=== PATIENT | female | born 2000 | race Caucasian/White ===

== ENCOUNTER 2023-04-18 13:00 | Emergency (ER) | payer BC, OTHER ==
[~2023-04-18] VITALS: Wt 84.4 kg
[~2023-04-18 13:00] MED LIST: BACTROBAN CREAM15 GM PO
[2023-04-18 13:40] LABS: BASO % 0.4 % (0.0-1.0); EOS # 0.5 10*3/uL (0.0-0.4); EOS % 5.1 % (1.0-4.0); HEMATOCRIT 37.1 % (37.0-47.0); LYMPH # 2.3 10*3/uL (1.3-4.4); LYMPH % 21.7 % (27.0-41.0); MEAN CELL VOLUME 92.3 fl (81.0-99.0); MEAN CORPUSCULAR HGB 31.8 pg (27.0-31.0); MEAN CORPUSCULAR HGB CONC 34.5 g/dl (33.0-37.0); MONO # 0.5 10*3/uL (0.1-1.0); MONO % 4.6 % (3.0-9.0); NEUT % 67.9 % (47.0-73.0); PLATELET COUNT AUTOMATED 258 10*3/uL (130-400); RED BLOOD COUNT 4.02 10*6/uL (4.10-5.10); RED CELL DISTRI WIDTH 11.4 % (0-14.5); WHITE BLOOD COUNT 10.4 10*3/uL (4.8-10.8)
[2023-04-18 13:51] LABS: ACT PARTIAL THROMBO TIME 27.1 SECONDS (20.0-32.1)
[2023-04-18 14:10] LABS: ALKALINE PHOSPHATASE 111 U/L (46-116); BUN 8 mg/dl (9-23); CHLORIDE 108 mmol/L (98-107); LIPASE 37 U/L (12-53); POTASSIUM 3.8 mmol/L (3.4-5.1); SGPT/ALT 29 U/L (5-49); TOTAL PROTEIN 6.6 gm/dL (6.0-8.0)
[2023-04-18 14:21] LABS: BILIRUBIN Negative (Negative); BLOOD 3+ (Negative); CLARITY Cloudy (Clear); COLOR Red (Yellow); GLUCOSE Negative (Negative); KETONE Negative (Negative); LEUKO ESTERASE 3+ (Negative); NITRITE Negative (Negative); PH 7.5 (4.5-8.0); SPECIFIC GRAVITY <= 1.005 (1.001-1.030); UROBILINOGEN 0.2 E.U./dl (0.0-1.0)
[2023-04-18 14:52] LABS: BACTERIA 2+; WBC 31-40 wbc/hpf (0-5)
[2023-04-18] MEDS ORDERED: CEPHALEXIN500 M1 PO (16:14)
== END 2023-04-18 16:22 | disposition home or self-care (01) ==
LOC: ED 13:00
PROVIDERS: Emergency Medicine
DX: N39.0 Urinary tract infection, site not specified (principal)

== ENCOUNTER 2023-10-30 10:11 | Emergency (ER) | payer BC, OTHER ==
[~2023-10-30] VITALS: Ht 160 cm; Wt 1065.9 kg
[~2023-10-30 10:11] MED LIST changes: +CEPHALEXIN500 M1 PO
[2023-10-30] MEDS ORDERED: REXULTI1 MG PO (10:50)
[2023-10-30 11:05] LABS: BASO % 0.6 % (0.0-1.0); EOS # 0.1 10*3/uL (0.0-0.4); EOS % 1.3 % (1.0-4.0); HEMATOCRIT 41.4 % (37.0-47.0); LYMPH # 1.7 10*3/uL (1.3-4.4); LYMPH % 24.4 % (27.0-41.0); MEAN CORPUSCULAR HGB 28.7 pg (27.0-31.0); MEAN CORPUSCULAR HGB CONC 31.9 g/dl (33.0-37.0); MEAN PLATELET VOLUME 10.3 fl (9.6-12.3); MONO # 0.6 10*3/uL (0.1-1.0); NEUT # 4.5 10*3/uL (2.3-7.9); NEUT % 65.6 % (47.0-73.0); PLATELET COUNT AUTOMATED 285 10*3/uL (130-400); RED CELL DISTRI WIDTH 12.2 % (0-14.5); WHITE BLOOD COUNT 6.9 10*3/uL (4.8-10.8)
[2023-10-30 11:13] LABS: BILIRUBIN Negative (Negative); BLOOD Negative (Negative); CLARITY Clear (Clear); COLOR Yellow (Yellow); GLUCOSE Negative (Negative); KETONE Negative (Negative); LEUKO ESTERASE 2+ (Negative); NITRITE Negative (Negative); SPECIFIC GRAVITY 1.015 (1.001-1.030)
[2023-10-30 11:23] LABS: BACTERIA 1+; EPITHELIAL CELLS 16-20; WBC 21-30 wbc/hpf (0-5)
[2023-10-30 11:27] LABS: ALKALINE PHOSPHATASE 127 U/L (46-116); BUN 5 mg/dl (9-23); CHLORIDE 105 mmol/L (98-107); LIPASE 40 U/L (12-53); POTASSIUM 4.1 mmol/L (3.4-5.1); SGPT/ALT 17 U/L (5-49); TOTAL PROTEIN 7.1 gm/dL (6.0-8.0)
[2023-10-30 11:29] LABS: B-hCG (QUALITATIVE) NEGATIVE (NEGATIVE)
[2023-10-30] MEDS ORDERED: IBUPROFEN 400 MG TAB PO ONE (11:50)
[2023-10-30] MEDS ORDERED: ACETAMINOPHEN 325 MG TAB PO ONE (11:50)
[2023-10-30] MEDS ORDERED: TYLENOL EXTRA500 MG PO (13:46)
[2023-10-30] MEDS ORDERED: IBUPROFEN400 MG PO (13:46)
== END 2023-10-30 14:06 | disposition home or self-care (01) ==
LOC: ED 10:11
PROVIDERS: Emergency Medicine
DX: R10.2 Pelvic and perineal pain (principal); Z79.899 Other long term (current) drug therapy

== ENCOUNTER 2024-01-24 15:22 | Emergency (ER) | payer BC, OTHER ==
[~2024-01-24] VITALS: Ht 160 cm; Wt 98.4 kg
[~2024-01-24 15:22] MED LIST changes: +IBUPROFEN400 MG PO; +REXULTI1 MG PO; +TYLENOL EXTRA500 MG PO
[2024-01-24] MEDS ORDERED: METFORMIN HCL PO (15:47)
[2024-01-24] MEDS ORDERED: TRILEPTAL150 MG PO (15:48)
[2024-01-24] MEDS ORDERED: Lactated Ringer's Solution 1,000 ML IV SCH (16:05)
[2024-01-24 17:04] LABS: BASO # 0.1 10*3/uL (0.0-0.1); BASO % 0.6 % (0.0-1.0); EOS # 0.1 10*3/uL (0.0-0.4); EOS % 0.6 % (1.0-4.0); HEMATOCRIT 42.6 % (37.0-47.0); MEAN CELL VOLUME 84.9 fl (81.0-99.0); MEAN CORPUSCULAR HGB 28.9 pg (27.0-31.0); MEAN PLATELET VOLUME 11.2 fl (9.6-12.3); MONO # 0.5 10*3/uL (0.1-1.0); MONO % 5.7 % (3.0-9.0); NEUT # 6.6 10*3/uL (2.3-7.9); NEUT % 70.9 % (47.0-73.0); PLATELET COUNT AUTOMATED 323 10*3/uL (130-400); RED BLOOD COUNT 5.02 10*6/uL (4.10-5.10); RED CELL DISTRI WIDTH 12.8 % (0-14.5); WHITE BLOOD COUNT 9.3 10*3/uL (4.8-10.8)
[2024-01-24 17:12] LABS: URINE AMPHETAMINES Negative (1000ng/ml); URINE BARBITURATES Negative (200ng/ml); URINE BENZODIAZEPINES Negative (200ng/ml); URINE CANNABINOIDS (THC) Negative (50ng/ml); URINE COCAINE Negative (300ng/ml); URINE METHADONE Negative (300ng/ml); URINE OPIATES Negative (300ng/ml); URINE PHENCYCLIDINE Negative (25ng/ml)
[2024-01-24 17:31] LABS: ALKALINE PHOSPHATASE 101 U/L (46-116); BUN 6 mg/dl (9-23); CHLORIDE 103 mmol/L (98-107); POTASSIUM 3.9 mmol/L (3.4-5.1); SGPT/ALT 13 U/L (5-49); TOTAL PROTEIN 7.7 gm/dL (6.0-8.0)
[2024-01-24 17:37] LABS: BETA-HCG, QUANT < 3.0 mIU/mL (3-10)
[2024-01-24] MEDS ORDERED: IOHEXOL 350 MG/ML 100 ML VIAL IV ONE ×3 (18:00→19:06)
[2024-01-24] MEDS ORDERED: SODIUM CHLORIDE 0.9% 100 ML BAG IV ONE ×2 (18:00→18:45)
[2024-01-24] MEDS ORDERED: SODIUM CHLORIDE 0.9% 100 ML IV ONE (19:07)
== END 2024-01-24 21:12 | disposition home or self-care (01) ==
LOC: ED 15:22
PROVIDERS: Emergency Medicine
DX: R00.2 Palpitations (principal); R00.0 Tachycardia, unspecified; R42 Dizziness and giddiness; Z87.891 Personal history of nicotine dependence

== ENCOUNTER → 2024-01-29 | Outpatient (CLI) | payer BC, OTHER ==
[~2024-01-29] MED LIST changes: +METFORMIN HCL PO; +TRILEPTAL150 MG PO
== END | disposition home or self-care (01) ==
LOC: CARD 02:08
PROVIDERS: ATTEND Family Medicine
DX: R00.0 Tachycardia, unspecified (principal); I49.3 Ventricular premature depolarization; R06.02 Shortness of breath; R55 Syncope and collapse

== ENCOUNTER → 2024-10-13 | Outpatient (CLI) | payer BC, OTHER | END | disposition home or self-care (01) | LOC: US 17:00 | PROVIDERS: ATTEND Nurse Practitioner Women's Health | DX: N94.10 Unspecified dyspareunia (principal); N94.89 Other specified conditions associated with female genital organs and menstrual cycle; R14.0 Abdominal distension (gaseous) ==

== ENCOUNTER 2025-02-09 22:35 | Emergency (ER) | payer BC, OTHER ==
[~2025-02-09] VITALS: Ht 167.6 cm; Wt 72.6 kg
== END 2025-02-09 23:10 | disposition left against medical advice (07) ==
LOC: ED 22:35
DX: G43.909 Migraine, unspecified, not intractable, without status migrainosus (principal); R20.0 Anesthesia of skin; H57.89 Other specified disorders of eye and adnexa; Z53.29 Procedure and treatment not carried out because of patient's decision for other reasons; Z88.6 Allergy status to analgesic agent; Z88.8 Allergy status to other drugs, medicaments and biological substances; Z79.84 Long term (current) use of oral hypoglycemic drugs; Z79.899 Other long term (current) drug therapy

== ENCOUNTER 2025-02-24 11:47 | Emergency (ER) | payer BC, OTHER ==
[~2025-02-24] VITALS: Ht 160 cm; Wt 84.4 kg
[2025-02-24 12:40] LABS: BILIRUBIN Negative (Negative); BLOOD Negative (Negative); CLARITY Clear (Clear); COLOR Yellow (Yellow); KETONE Negative (Negative); LEUKO ESTERASE 3+ (Negative); NITRITE Negative (Negative); PH 8.0 (4.5-8.0); SPECIFIC GRAVITY <= 1.005 (1.001-1.030); UROBILINOGEN 0.2 E.U./dl (0.0-1.0)
[2025-02-24] MEDS ORDERED: SODIUM CHLORIDE 0.9% 1,000 ML IV ONE (13:05)
[2025-02-24 13:09] LABS: BACTERIA 3+; WBC TNTC wbc/hpf (0-5)
[2025-02-24 13:15] LABS: BASO # 0.0 10*3/uL (0.0-0.1); BASO % 0.5 % (0.0-1.0); EOS # 0.1 10*3/uL (0.0-0.4); EOS % 0.6 % (1.0-4.0); MEAN CELL VOLUME 88.2 fl (81.0-99.0); MEAN CORPUSCULAR HGB 29.5 pg (27.0-31.0); MEAN PLATELET VOLUME 10.5 fl (9.6-12.3); MONO # 0.5 10*3/uL (0.1-1.0); MONO % 5.5 % (3.0-9.0); NEUT # 6.2 10*3/uL (2.3-7.9); NEUT % 73.3 % (47.0-73.0); NUCLEATED RED BLOOD CELL 0.0 % (0.0-0.0); NUCLEATED RED BLOOD CELL 0.0 10*3/uL (0.0-0.0); PLATELET COUNT AUTOMATED 289 10*3/uL (130-400); RED CELL DISTRI WIDTH 11.4 % (0-14.5)
[2025-02-24 13:42] LABS: BUN 8 mg/dl (9-23); SGPT/ALT 9 U/L (5-49)
[2025-02-24] MEDS ORDERED: Ciprofloxacin Hydrochloride 500 MG TAB PO ONE (15:50)
[2025-02-24] MEDS ORDERED: CIPRO500 MG PO (15:53)
== END 2025-02-24 16:33 | disposition home or self-care (01) ==
LOC: ED 11:47
PROVIDERS: Nurse Practitioner
DX: N39.0 Urinary tract infection, site not specified (principal); R10.32 Left lower quadrant pain; G43.909 Migraine, unspecified, not intractable, without status migrainosus; Z88.8 Allergy status to other drugs, medicaments and biological substances